=== PATIENT | male | born 1980 | race Caucasian/White ===

== ENCOUNTER 2017-04-12 18:04 | Emergency (ER) | payer OTHER ==
[~2017-04-12] VITALS: Ht 180.3 cm; Wt 94.8 kg
[~2017-04-12 18:04] MED LIST: OMEPRAZOLE20 MG PO; ZOFRAN ODT4 MG PO
[2017-04-12 18:07] VITALS: BP 144/95
[2017-04-12] MEDS ORDERED: PERCOCET 5/31 TABLET PO (20:47)
[2017-04-12] MEDS ORDERED: MOTRIN800 MG PO (20:47)
== END 2017-04-12 21:17 | disposition home or self-care (01) ==
LOC: EME 18:04
PROC: 2W3EX1Z Immobilization of Right Hand using Splint (ICD-10-PCS; principal; 2017-04-12)
DX: S62.600A Fracture of unspecified phalanx of right index finger, initial encounter for closed fracture (principal); W21.03XA Struck by baseball, initial encounter; Y93.64 Activity, baseball
CPT/HCPCS: 73130; 99281; 99284